=== PATIENT | male | born 1985 | race Caucasian/White ===

== ENCOUNTER 2016-12-21 14:32 | Emergency (ER) | payer OTHER ==
[~2016-12-21] VITALS: Ht 177.8 cm; Wt 90.7 kg
--- NOTE | 2016-12-21 16:14 | ED SYNCOPE COMPLAINT ---
History of Present Illness General Chief Complaint: Syncope and Near-Syncope Stated Complaint: BIBA FOR EVAL OF SYNCOPE (AT WORK) Source: patient Exam Limitations: no limitations Vital Signs & Intake/Output Vital Signs & Intake/Output Vital Signs Date Time Temp Pulse Resp B/P Pulse O2 O2 Flow FiO2 Ox Delivery Rate 12/21 1745 97.0 77 16 131/75 98 Room Air 12/21 1451 97.9 74 20 120/81 99 Room Air Allergies Coded Allergies: No Known Allergies (12/21/16) Triage Note: TRIAGE: PT BIBA S/P SYNCOPAL EPISODE W/FALL. HAS ABRASION TO R SIDE OF FACE AND COMPLAINS OF MINOR PAIN TO R KNEE. +LOC. WOKE UP ON GROUND. +RETROGRADE AMNESIA INITIALLY BUT NOW A/O. SAW VIDEO IN WHICH THEY WERE APPLYING TOURNIQUETS AND SAW SOME BLOOD WHICH CAUSED HIM TO FEEL LIGHTHEADED. HE THEN WENT OUTSIDE TO GET SOME FRESH AIR WHERE HE PASSED OUT ON [place] SURFACE. UNSURE OF LENGTH OF TIME OF LOC. DENIES HX OF SYNCOPAL EPISODES IN THE PAST. WAS WATCHING VIDEO PART OF TRAINING FOR WORK. Triage Nurses Notes Reviewed? 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 Patient currently denies any symptoms denies any headache blurred vision neck pain and back pain. Denies any alcohol use today. Tetanus is up-to-date Past History Travel History Traveled to [place] past 21 day No Medical History Any Pertinent Medical History? none Neurological: NONE EENT: NONE Cardiovascular: NONE Respiratory: NONE Gastrointestinal: NONE Hepatic: NONE Renal: NONE Musculoskeletal: NONE Psychiatric: NONE Endocrine: NONE Blood Disorders: NONE Cancer(s): NONE CUSHION PADDER/Reproductive: NONE Surgical History Surgical History: non-contributory Psychosocial History What is your primary language Azerbaijani Tobacco Use: Never used ETOH Use: occasional use Illicit Drug Use: denies illicit drug use Family History Hx Contributory? No Review of Systems Review of Systems Constitutional: Reports: no symptoms. EENTM: Reports: no symptoms. Respiratory: Reports: no symptoms. Cardiovascular: Reports: see HPI, syncope. GI: Reports: no symptoms. Genitourinary: Reports: no symptoms. Musculoskeletal: Reports: no symptoms. Skin: Reports: see HPI. Neurological/Psychological: Reports: no symptoms. All Other Systems: Reviewed and Negative Physical Exam Physical Exam General Appearance: no apparent distress, alert, comfortable Cranial Nerves: normal hearing, normal speech, PERRL Comments: Well-developed well-nourished person in no acute distress HEENT: Normal EENT exam, extraocular motion intact, no nystagmus. Pupils equally round and reactive to light and accommodation. Nose is atraumatic. External auditory canal and Tympanic membranes clear. Pharynx normal. No swelling or edema. Neck: Supple, no lymphadenopathy, normal range of motion without pain or tenderness Back: Nontender, no CVA tenderness. Cardiovascular: Regular rate and rhythms no murmurs rubs or gallops, normal JVP Respiratory: Chest nontender. No respiratory distress.breath sounds clear to auscultation bilaterally Abdomen: Soft, nontender nondistended, no appreciable organomegaly. Normal bowel sounds. No ascites Extremity: No edema, no calf tenderness to palpation, normal and equal pulses. Neuro: Alert oriented x3, motor sensory normal, cranial nerves II through XII grossly intact. Negative Romberg negative cerebellar testing Skin: No appreciable rash on exposed skin, skin is warm and dry. Psych: Mood and affect is normal, memory and judgment is normal. Face-superficial skin abrasions noted to right side of face no trismus no step- off deformity no active bleeding no laceration Core Measures ACS in differential dx? No CVA/TIA Diagnosis: No Severe Sepsis Present: No Septic Shock Present: No Progress Differential Diagnosis: AMI, aortic dissection, aortic valve, drug induced syncope, hyperventilation, orthostatic syncope, other valvular disease, pacemaker malfunction, pericardial tamponade, pulmonary embolus, seizure, sick sinus syndrome, subarachnoid hem., TIA/CVA, vasodepressor syncope, ventricular tach/fib Plan of Care: Orders Procedure Date/time Status EKG 12/21 1614 Active Patient's tetanus status was up-to-date CT scan was unremarkable EKG normal sinus rhythm was noted patient had normal steady gait. I applied peroxide and sterile water to skin abrasion wound of face and bacitracin was applied. DUE TO HPI and exam findings patient's likely had a vasovagal response due to preceding VIDEO WATCHED upon discharge patient looks well no apparent distress and will comply discharge instructions and had no questions (APARNA MENDEZ,LILLIE) Diagnostic Imaging: Viewed by Me: CT Scan. Radiology Impression: no acute abnormality, no fracture Initial ED EKG: SINUS RHYTHM NOTICED 69 BPM Comments: PATIENT: CHEY VEGAS PRESENT AGE: 31 PATIENT ACCOUNT NO: [id number] : 87 LOCATION: [facility] ORDERING PHYSICIAN: LILLIE MENDEZ SERVICE DATE: 12/21/16 EXAM TYPE: CAT - CT HEAD WO IV CONTRAST EXAMINATION: CT HEAD WITHOUT CONTRAST CLINICAL INFORMATION: Trauma to head. Syncope. COMPARISON: None. TECHNIQUE: Contiguous helical images of the brain were obtained without IV contrast. Multiplanar reconstructions were performed. DLP: 601 mGy-cm. FINDINGS: There are no pathologic extra-axial fluid collections. The lateral, third, fourth ventricles are nondilated and concordant with the appearance of the sulci. There is no evidence for acute intraparenchymal hemorrhage or infarct. There is neither mass nor mass effect. There is no shift of midline structures. The paranasal sinuses and mastoid air cells are clear. There are no osseous lesions. IMPRESSION: No evidence for acute intracranial injury. Departure Departure Disposition: HOME OR SELF CARE Condition: Stable Clinical Impression Primary Impression: Vasovagal syncope Secondary Impressions: Skin abrasion Referrals: UNKNOWN (PCP/Family) Additional Instructions: As discussed begin to apply bacitracin to area for the next 4 days then leave area dry and clean as YOU CAN TO IMPROVE HEALING. If you note signs of infection redness, pain, swelling, discharge return to the emergency room. If symptoms worsen return to emergency room. Departure Forms: Customer [employer] Employee Industrial Accident General Discharge Information
--- NOTE | 2016-12-21 17:25 | CT SCAN REPORT ---
EXAMINATION: CT HEAD WITHOUT CONTRAST CLINICAL INFORMATION: Trauma to head. Syncope. COMPARISON: None. TECHNIQUE: Contiguous helical images of the brain were obtained without IV contrast. Multiplanar reconstructions were performed. DLP: 601 mGy-cm. FINDINGS: There are no pathologic extra-axial fluid collections. The lateral, third, fourth ventricles are nondilated and concordant with the appearance of the sulci. There is no evidence for acute intraparenchymal hemorrhage or infarct. There is neither mass nor mass effect. There is no shift of midline structures. The paranasal sinuses and mastoid air cells are clear. There are no osseous lesions. IMPRESSION: No evidence for acute intracranial injury.
[2016-12-21 17:45] VITALS: BP 131/75
== END 2016-12-21 17:47 ==
LOC: ERH 14:32
DX: S00.81XA Abrasion of other part of head, initial encounter (principal); R55 Syncope and collapse; W19.XXXA Unspecified fall, initial encounter; Y93.89 Activity, other specified; Y92.9 Unspecified place or not applicable
CPT/HCPCS: 93005; 93010